=== PATIENT | male | born 1965 | race Caucasian/White ===

== ENCOUNTER 2023-08-31 08:53 | Outpatient (CLI) | payer OTHER, SELFPAY | END 2023-08-31 08:54 | disposition home or self-care (01) | LOC: NFLDREF 09-02 00:11 | PROVIDERS: PCP Family Medicine; Referring Provider Family Medicine; Visit Provider Family Medicine | DX: Z00.00 Encounter for general adult medical examination without abnormal findings (principal); E66.9 Obesity, unspecified; R53.83 Other fatigue; R63.5 Abnormal weight gain; R68.82 Decreased libido | CPT/HCPCS: 80053; 80061; 82306; 84153; 84270; 84402; 84403; 84443 ==